=== PATIENT | female | born 1980 | race Hispanic/Latino ===

== ENCOUNTER 2024-03-30 15:54 | Emergency (ER) | payer OTHER ==
[~2024-03-30] VITALS: Ht 165.1 cm; Wt 89.7 kg
[2024-03-30 15:57] VITALS: TEMP 97.8; O2SAT 97
[2024-03-30] MEDS: IBUPROFEN 600MG TAB PO ONE (16:59)
[2024-03-30] MEDS: ACETAMINOPHEN 500 MG TAB PO ONE (16:59)
[2024-03-30] MEDS: CEPHALEXIN 500 MG CAP PO ONE (17:42)
[2024-03-30 18:20] VITALS: BP 172/96
[2024-03-30] MEDS ORDERED: LISI20TA33 PO (18:21)
[2024-03-30] MEDS ORDERED: HYDR-3490 PO (18:21)
[2024-03-30] MEDS ORDERED: CEPH500C PO (18:25)
== END 2024-03-30 18:38 | disposition home or self-care (01) ==
LOC: M ED 15:54
DX: I10 Essential (primary) hypertension (principal); L03.032 Cellulitis of left toe; Z88.8 Allergy status to other drugs, medicaments and biological substances

== ENCOUNTER 2024-06-30 09:00 | Emergency (ER) | payer OTHER ==
[~2024-06-30] VITALS: Ht 165.1 cm; Wt 90.8 kg
[~2024-06-30 09:00] MED LIST: CEPH500C PO; HYDR-3490 PO; LISI20TA33 PO
[2024-06-30 09:12] VITALS: TEMP 99
[2024-06-30 11:15] VITALS: BP 166/95; O2SAT 99
[2024-06-30] MEDS: METOCLOPRAMIDE INJ 10MG/2ML VIAL IV ONE (12:31)
[2024-06-30] MEDS: ACETAMINOPHEN 500 MG TAB PO ONE (12:31)
[2024-06-30] MEDS: KETOROLAC 30 MG/ML 1ML VIAL IV ONE (12:31)
[2024-06-30] MEDS: NS (Normal Saline) 0.9% 1,000 ML IV ONE (12:32)
[2024-06-30] MEDS ORDERED: REGL10TA6 PO (13:15)
== END 2024-06-30 13:30 | disposition home or self-care (01) ==
LOC: M ED 09:00
DX: G44.201 Tension-type headache, unspecified, intractable (principal); I10 Essential (primary) hypertension; Z79.899 Other long term (current) drug therapy; Z91.89 Other specified personal risk factors, not elsewhere classified
CPT/HCPCS: 70450; 93041; 94760; 96361; 96374; 96375; 99284; J1885; J2765

== ENCOUNTER 2024-11-16 20:54 | Emergency (ER) | payer OTHER ==
[~2024-11-16] VITALS: Ht 165.1 cm; Wt 81.8 kg
[~2024-11-16 20:54] MED LIST changes: +REGL10TA6 PO
[2024-11-16 22:23] VITALS: BP 181/102
[2024-11-16] MEDS: amLODIPine 10 MG TAB PO ONE (22:23)
[2024-11-16] MEDS: LABETALOL 100 MG/20 ML VIAL IV STA (23:58)
[2024-11-17 00:19] LABS: BASO # 0.0 10^3/uL (0.0-0.2); BASO % 0.1 % (0.0-1.0); EOS # 0.3 10^3/uL (0.0-0.5); EOS % 3.6 % (0.0-3.0); LYMPH # 2.1 10^3/uL (1.5-5.0); LYMPH % 27.6 % (24.0-44.0); MONO # 0.6 10^3/uL (0.0-0.8); MONO % 7.1 % (2.0-8.0); NEUTROPHILS # 4.8 10^3/uL (1.5-8.5); NEUTROPHILS % 61.3 % (36.0-66.0); PLATELET COUNT, AUTOMATED 265 10^3/uL (150-450)
[2024-11-17 00:29] LABS: CALCIUM LEVEL 9.1 MG/DL (8.5-10.1); CARBON DIOXIDE LEVEL 26 MMOL/L (20-31); CHLORIDE LEVEL 105 MMOL/L (98-107); CREATININE FOR GFR 0.68 MG/DL (0.55-1.30); GLOMERULAR FILTRATION RATE > 90.0 (>58); MAGNESIUM LEVEL 2.1 MG/DL (1.8-2.4); POTASSIUM SERUM 3.9 MMOL/L (3.5-5.1); SODIUM LEVEL 143 MMOL/L (136-145)
[2024-11-17] MEDS ORDERED: FIOR1CAP PO (00:39)
[2024-11-17] MEDS ORDERED: AMLO1TAB25 PO (00:39)
[2024-11-17] MEDS ORDERED: AMLO1TAB24 PO (00:41)
[2024-11-17 00:45] VITALS: BP 162/90; TEMP 98.7; O2SAT 96
== END 2024-11-17 00:59 | disposition home or self-care (01) ==
LOC: M ED 20:54
DX: G43.909 Migraine, unspecified, not intractable, without status migrainosus (principal); I10 Essential (primary) hypertension; Z79.899 Other long term (current) drug therapy
CPT/HCPCS: 80048; 83735; 85025; 96374; 99284; J1920

== ENCOUNTER 2025-04-09 16:30 | Inpatient (IN) | payer OTHER, SELFPAY ==
[2025-04-09] VITALS (24 sets, daily range): BP systolic 145–235; BP diastolic 79–127; TEMP 97.4; O2SAT 96–99
[~2025-04-09] VITALS: Ht 165.1 cm; Wt 88.4 kg
[~2025-04-09 16:30] MED LIST changes: +AMLO1TAB24 PO; +AMLO1TAB25 PO; +FIOR1CAP PO
[2025-04-09] MEDS ORDERED: ISOVUE-370 76% 100 ML VIAL As Ordered ONE (16:55)
[2025-04-09 17:11] LABS: BASO # 0.0 10^3/uL (0.0-0.2); BASO % 0.1 % (0.0-1.0); EOS # 0.2 10^3/uL (0.0-0.5); EOS % 2.9 % (0.0-3.0); LYMPH # 2.5 10^3/uL (1.5-5.0); LYMPH % 31.0 % (24.0-44.0); MONO # 0.7 10^3/uL (0.0-0.8); MONO % 8.8 % (2.0-8.0); NEUTROPHILS # 4.6 10^3/uL (1.5-8.5); NEUTROPHILS % 56.8 % (36.0-66.0); PLATELET COUNT, AUTOMATED 241 10^3/uL (150-450)
[2025-04-09 17:33] LABS: ETHYL ALCOHOL (ETHANOL) < 0.003 % (0.000-0.010)
[2025-04-09 17:34] LABS: CPK CREATINE PHOSPHOKINASE 57 U/L (34-145); SALICYLATE LEVEL < 3.0 MG/DL (<30)
[2025-04-09 17:35] LABS: ALT/SGPT 18 U/L (7.0-40); AST/SGOT 17 U/L (<34); CALCIUM LEVEL 8.2 MG/DL (8.5-10.1); CARBON DIOXIDE LEVEL 27 MMOL/L (20-31); CHLORIDE LEVEL 105 MMOL/L (98-107); CK-MB VALUE MASS 1.3 NG/ML (<3.6); CREATININE FOR GFR 0.83 MG/DL (0.55-1.30); GLOMERULAR FILTRATION RATE 89.1 (>58); MB/CK RELATIVE INDEX 2.28 (< OR =4); POTASSIUM SERUM 3.7 MMOL/L (3.5-5.1); SODIUM LEVEL 141 MMOL/L (136-145)
[2025-04-09] MEDS ORDERED: LABETALOL 100 MG/20 ML VIAL IV STA (18:07)
[2025-04-09] MEDS ORDERED: niCARdipine IV 40 MG in IV 1 EA IV SCH ×2 (18:25→18:36)
[2025-04-09] MEDS: niCARdipine IV 40 MG in IV 1 EA IV SCH (18:33)
[2025-04-09 18:58] LABS: CK-MB VALUE MASS 1.4 NG/ML (<3.6)
[2025-04-09 18:59] LABS: CPK CREATINE PHOSPHOKINASE 63.0 U/L (34-145); MB/CK RELATIVE INDEX 2.22 (< OR =4)
[2025-04-09] MEDS ORDERED: HOME MED LIST COMPLETE! XX SCH (19:50)
[2025-04-09 19:53] LABS: AMPHETAMINES LEVEL URINE NEGATIVE (NEGATIVE); BARBITURATES URINE NEGATIVE (NEGATIVE); BENZODIAZEPINES URINE NEGATIVE (NEGATIVE); CANNABINOIDS URINE NEGATIVE (NEGATIVE); COCAINE METABOLITE URINE NEGATIVE (NEGATIVE); METHADONE URINE NEGATIVE (NEGATIVE); OPIATES URINE NEGATIVE (NEGATIVE); PHENCYCLIDINE URINE NEGATIVE (NEGATIVE)
[2025-04-09 20:00] LABS: PLATELET COUNT, AUTOMATED 251 10^3/uL (150-450)
[2025-04-09 20:24] LABS: INR 0.93
[2025-04-09] MEDS: ACETAMINOPHEN *IV* 1,000 MG in IV 1 EA IV ONE (22:18)
[2025-04-10] VITALS (14 sets, daily range): BP systolic 136–177; BP diastolic 75–106; TEMP 97.5–99; O2SAT 96–98
[2025-04-10 03:48] LABS: BASO # 0.0 10^3/uL (0.0-0.2); BASO % 0.0 % (0.0-1.0); EOS # 0.2 10^3/uL (0.0-0.5); EOS % 2.1 % (0.0-3.0); LYMPH # 2.6 10^3/uL (1.5-5.0); LYMPH % 30.5 % (24.0-44.0); MONO # 0.7 10^3/uL (0.0-0.8); MONO % 7.7 % (2.0-8.0); NEUTROPHILS # 5.1 10^3/uL (1.5-8.5); NEUTROPHILS % 59.6 % (36.0-66.0); PLATELET COUNT, AUTOMATED 251 10^3/uL (150-450)
[2025-04-10 04:09] LABS: CALCIUM LEVEL 8.2 MG/DL (8.5-10.1); CARBON DIOXIDE LEVEL 24 MMOL/L (20-31); CHLORIDE LEVEL 107 MMOL/L (98-107); CREATININE FOR GFR 0.59 MG/DL (0.55-1.30); GLOMERULAR FILTRATION RATE > 90.0 (>58); POTASSIUM SERUM 3.5 MMOL/L (3.5-5.1); SODIUM LEVEL 140 MMOL/L (136-145)
[2025-04-10] MEDS: ACETAMINOPHEN 325 MG TAB PO ONE (07:45)
[2025-04-10] MEDS: IBUPROFEN 600 MG TAB PO ONE (08:03)
[2025-04-10] MEDS: ENOXAPARIN 40 MG/0.4 ML SYRINGE (J1650 PER 10MG) SC SCH (08:04)
[2025-04-10] MEDS: amLODIPine 5 MG TAB PO SCH (08:05)
[2025-04-10] MEDS: ACETAMINOPHEN 325 MG TAB PO PRN (12:39)
[2025-04-11] VITALS: BP 157/88; TEMP 98; O2SAT 96
[2025-04-11 04:00] VITALS: BP 147/78; TEMP 97.6; O2SAT 96
[2025-04-11 08:07] VITALS: BP 148/92; TEMP 98.2; O2SAT 96
[2025-04-11 09:38] VITALS: BP 148/92
[2025-04-11] MEDS ORDERED: PROHANCE 279.3MG/ML 15ML VIAL As Ordered ONE (10:16)
[2025-04-11] MEDS ORDERED: PROHANCE 279.3MG/ML 5ML VIAL As Ordered ONE (10:16)
[2025-04-11] MEDS ORDERED: AMLO1TAB24 PO (11:56)
[2025-04-11 12:07] VITALS: BP 148/86; O2SAT 83
== END 2025-04-11 12:43 | disposition home or self-care (01) | DRG 199 ==
LOC: M ED 16:30 → EDBD 16:30 → M ED INP 18:25 → M ICU 20:13
PROVIDERS: ADMIT Student in an Organized Health Care Education/Training Program; ATTEND Student in an Organized Health Care Education/Training Program
PROC: B246ZZZ Ultrasonography of Right and Left Heart (ICD-10-PCS; principal; 2025-04-10)
DX: I16.1 Hypertensive emergency (principal); G93.41 Metabolic encephalopathy; G43.909 Migraine, unspecified, not intractable, without status migrainosus; Z91.048 Other nonmedicinal substance allergy status; I10 Essential (primary) hypertension